=== PATIENT | female | born 1970 | race American Indian/Alaskan Native ===

== ENCOUNTER 2019-11-10 09:54 | Emergency (ER) | payer OTHER ==
[2019-11-10 10:12] VITALS: BP 121/69
--- NOTE | 2019-11-10 11:58 | Emergency Department Report ---
[facility] Chief Complaint: Eye Problems Stated Complaint: EYE INFECTION Time Seen by Provider: 11/10/19 11:53 Duration: 1 Day Side: Left Severity: mild Symptoms: Yes Eye Redness, Yes Eye Pain (left eye), Yes Contact Lens Use, No Eye Itching, No Mucous Drainage, No Purulent Drainage, No Blurred Vision, No Preceding URI, No H/O Allergic Rhinitis, No Trauma, No Fever, No Headache Other History: This is a 49-year-old female with no medical condition presents the ED complaining of bilateral eye irritation that began yesterday. She denies any foreign object in the eyes, she denies any eye problems. She denies vision loss. She denies any contact use. ED Review of Systems ROS: Stated complaint: EYE INFECTION Other details as noted in HPI Comment: All other systems reviewed and negative ED Past Medical Hx - Past Medical History Previous Medical History?: No - Surgical History Past Surgical History?: No - Social History Smoking Status: Never Smoker Substance Use Type: None - Medications Home Medications: Home Medications Medication Instructions Recorded Confirmed Last Taken Type Ofloxacin 0.3% [Ocuflox 0.3% opt] 1 - 2 drops OP TID #1 bottle 11/10/19 Unknown Rx [facility] Exam - Exam General: Vital signs noted. No distress. Alert and acting appropriately. Eye Exam: Both Injection, Neither Chemosis, Neither Abnormal Pupil, Neither EOMI, Neither Eye Foreign Body (None), Neither Lid Foreign Body (None), Neither Mucous Discharge, Neither Purulent Discharge HEENT: No Nasal Congestion, No Pharyngeal Erythema Remainder of HEENT: Normal Lungs: Yes Clear Lung Sounds, Yes Good Air Exchange, No Wheezes, No Stridor, No Cough, No Nasal Flaring, No Retractions, No Use of Accessory Muscles Exam: Pupils equal and reactive to light and accommodation bilaterally. No edema of the lids or eyelashes. ED Course Vital Signs 11/10/19 10:10 Temperature 98.2 F Pulse Rate 72 Respiratory 18 Rate Blood Pressure 121/69 [Right] O2 Sat by Pulse 100 Oximetry ED Medical Decision Making - Medical Decision Making 49-year-old female presents with left eye conjunctivitis ED course: no corneal abrasion noted. discussed this with the patient. 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 I discussed the patient is new or worsening symptoms to return to ED immediately Patient's vital signs are stable she's in no distress. Patient is vision is intact, visual acuity test performed, within normal limits. Discussed the patient to follow up with her primary care physician in 3-5 days. Critical care attestation.: If time is entered above; I have spent that time in minutes in the direct care of this critically ill patient, excluding procedure time. ED Disposition Clinical Impression: Conjunctivitis Disposition: [id number] TO HOME OR SELFCARE Is pt being admited?: No Does the pt Need Aspirin: No Condition: Stable Instructions: Conjunctivitis (ED) Additional Instructions: Make sure to follow up with the primary care physician as discussed. Take all your medications as you've been prescribed. If you have any worsening symptoms or develop new symptoms please return to ED immediately. Prescriptions: Ofloxacin 0.3% [Ocuflox 0.3% opth] 1 - 2 drops OP TID #1 bottle Referrals: [facility] [Outside] - 3-5 Days [facility] [address] [Outside] - 3-5 Days Forms: Work/School Release Form(ED) Time of Disposition: 12:03
== END 2019-11-10 11:58 | disposition home or self-care (01) ==
LOC: ED 09:54
DX: H10.9 Unspecified conjunctivitis (principal); Z79.899 Other long term (current) drug therapy
CPT/HCPCS: 99282